=== PATIENT | female | born 1960 | race Caucasian/White ===

== ENCOUNTER 2021-08-19 22:44 | Emergency (ER) | payer BC ==
[~2021-08-19] VITALS: Ht 157.5 cm; Wt 54.4 kg
[2021-08-19 22:50] VITALS: BP_SYST 101
--- NOTE | 2021-08-19 22:50 | NUR ---
Patient triaged and placed in ER BED HOLD. VSS and patient appears in no acute distress at this time. Accompanied by BLS TRANSPORT, awaiting available bed, and MD notified of need for MSE.
--- NOTE | 2021-08-19 23:30 | NUR ---
PT JAMARI FROM LOC[facility]. PT CRYING, STATES SHE WANTS REHAB. ADMITS TO DRINKING (VODKA) ON WEEKENDS FOR THE LAST TWO YEARS. HAVING MARITAL AND FAMILY ISSUES. DENIES SI/HI. PT CONSOLED AND RESOURCES GIVEN TO AA MEETINGS. PT AAOX4, DENIES N/V/D. ALSO REPORTS CHRONIC BACK PAIN AND REQUESTING PAIN MEDICATION.
--- NOTE | 2021-08-20 00:58 | NUR ---
DR FARIAS AT [facility] FOR EXAM.
[2021-08-20] MEDS: IBUPROFEN 600 MG TABLET PO ONE (01:22)
--- NOTE | 2021-08-20 01:22 | NUR ---
MEDICATED ORDERED, PT WITH BETTER SPIRITS.
--- NOTE | 2021-08-20 03:07 | NUR ---
PT AMBULATED TO [facility], REQUESTING SOMETHING FOR ANXIETY AND NORCO FOR PAIN. DR FARIAS INFORMED.ORDERS RECEIEVED, NONE AVAIABLE IN [place]. [facility] CALLED FOR MED. PT GIVEN SNACKS REQUESTED.
--- NOTE | 2021-08-20 03:25 | NUR ---
MEDICATED ORDERED, WILL CONT TO MONITOR.
--- NOTE | 2021-08-20 05:16 | NUR ---
PT REQUESTING TO BE SENT HOME,STATES SHE WILL CALL FAMILY TO [employer], REPORTS FEELING BETTER. STABLE GAIT OBSERVED. VSS.
--- NOTE | 2021-08-20 05:32 | NUR ---
Patient given written and verbal discharge instructions and verbalizes understanding. ER MD discussed with patient the results and treatment provided. Patient in stable condition. ID arm band removed. Patient educated on pain management and to follow up with PMD. Pain Scale [0]. STABLE GAIT, PT [id number] Opportunity for questions provided and answered. Medication side effect fact sheet provided.
[2021-08-20 05:35] VITALS: BP_SYST 112
== END 2021-08-20 05:32 | disposition home or self-care (01) ==
LOC: SED 22:44
DX: F10.129 Alcohol abuse with intoxication, unspecified (principal); Y90.9 Presence of alcohol in blood, level not specified
CPT/HCPCS: 99283

== ENCOUNTER 2022-03-31 01:20 | Emergency (ER) | payer BC ==
[~2022-03-31] VITALS: Ht 144.8 cm; Wt 63.5 kg
[2022-03-31 01:45] VITALS: BP_SYST 112
--- NOTE | 2022-03-31 01:45 | NUR ---
Patient triaged and placed in ambulance [facility]. VSS and patient appears in no acute distress at this time. Accompanied by ems, awaiting available bed, and MD notified of need for MSE.
--- NOTE | 2022-03-31 02:09 | NUR ---
ER examining patient in the [facility].
--- NOTE | 2022-03-31 03:00 | NUR ---
Splint applied to right ankle by SHAYNA townsend.Pt tolerated well.
--- NOTE | 2022-03-31 03:16 | NUR ---
Report given to Nurse Jarquin([facility]).
--- NOTE | 2022-03-31 03:31 | NUR ---
Patient given written and verbal discharge instructions and verbalizes understanding. ER MD discussed with patient the results and treatment provided. Patient in stable condition.Pt back to [facility] via ambulance. ID arm band removed. no Rx of given. Patient educated on pain management and to follow up with PMD. Pain Scale 4/10. Opportunity for questions provided and answered. Medication side effect fact sheet provided.
[2022-03-31 03:32] VITALS: BP_SYST 115
== END 2022-03-31 03:32 | disposition home or self-care (01) ==
LOC: SED 01:20
DX: S82.892A Other fracture of left lower leg, initial encounter for closed fracture (principal); Z79.899 Other long term (current) drug therapy; W06.XXXA Fall from bed, initial encounter; Y93.89 Activity, other specified; Y92.89 Other specified places as the place of occurrence of the external cause; Y99.8 Other external cause status
CPT/HCPCS: 99283